=== PATIENT | male | born 1995 | race Caucasian/White ===

== ENCOUNTER 2023-04-24 14:37 | Emergency (ER) | payer SELFPAY ==
--- NOTE | ~2023-04-24 | US_ITS ---
EXAMINATION: US scrotum doppler DATE: 04/24/2023 16:35 INDICATION: Right testicular pain. TECHNIQUE: Grayscale and Doppler ultrasound images of the testes were obtained. COMPARISON: None. FINDINGS: The right testis measures 4.2 x 2.0 x 2.8 cm. The left testis measures 3.9 x 2.2 x 2.5 cm. There is normal vascular flow to both testes. The right epididymis is normal with normal vascular shyann w. The left epididymis is normal with normal vascular flow. There is no varicocele or hydrocele. IMPRESSION: 1. Normal testes. Reviewed, dictated and finalized at location A. ING AGENT IMPRESSION: 1. Normal testes.
[2023-04-24 15:01] VITALS: BP 140/95; PULSE 91; RESP 18; TEMP 36.6; O2SAT 100
--- NOTE | 2023-04-24 15:37 | ED.GENADULT ---
HPI - General Adult General Chief complaint: Urogenital-Male <Vicky Resendiz July, FLIGHT DIRECTOR - Last Filed: 04/24/23 15:42> Stated complaint: penis drainage? <Vicky Resendiz July, - Last Filed: 04/24/23 15:42> Time Seen by Provider: 04/24/23 18:55 <Vicky Resendiz July, FLIGHT DIRECTOR - Last Filed: 04/24/23 15:42> History of Present Illness HPI narrative: Focused HPI: [id number] Rm is a 28 y/o male who presents today with reports of having pain swelling to the Right testicle that started 3 days ago still having pain to the right side- Now also having some penile discharge that started 2 days ago also having some pain with urination Denies fever but states that he did have chills 3 days ago Denies concern for STI. GENERAL: Well-appearing, well-nourished, and in no acute distress. HEAD: Normocephalic, atraumatic. CHEST: Clear to auscultation. ?No respiratory distress. HEART: Regular rate and rhythm.? NEURO: ?Alert and oriented x3. Patient screened in triage and initial orders placed.? ?Additional care and disposition to be based upon?diagnostic testing and treatment. <Vicky Resendiz July, - Last Filed: 04/24/23 15:42> Related Data Allergies/adverse reactions: Allergies Allergy/AdvReac Type Severity Reaction Status Date / Time No Known Allergies Allergy Unknown Unverified 04/24/23 14:38 <Vicky Resendiz July,N - Last Filed: 04/24/23 15:42> Exam Narrative: APPEARANCE: No apparent distress. Head: atraumatic. EYES: EOMI, NOSE: Atraumatic NECK: Trachea midline RESPIRATORY: No increased rate of breathing CARDIOVASCULAR: RRR, ABDOMINAL: Non-distended MUSCULOSKELETAl: No obvious deformities NEURO: Alert. Moving 4/4 extremities SKIN:: Warm, dry. Normal color PSYCHIATRIC: Normal affect General exam: Normal oximetry O2 without gross lesions. Normal lie of the testicles. Some swelling along the posterior aspect of the right testicle. Cremasteric reflex intact. <Alessandro Concepcion MD - Last Filed: 04/24/23 22:19> Course Vital Signs Vital signs: Vital Signs Temperature 97.9 F 04/24/23 15:01 Pulse Rate 91 04/24/23 15:01 Respiratory Rate 18 04/24/23 15:01 Blood Pressure 140/95 H 04/24/23 15:01 Pulse Oximetry 100 04/24/23 15:01 Oxygen Delivery Room Air 04/24/23 15:01 Temperature 98.5 F 04/24/23 20:30 Pulse Rate 64 04/24/23 20:30 Respiratory Rate 16 04/24/23 20:30 Blood Pressure 128/93 H 04/24/23 20:30 Pulse Oximetry 99 04/24/23 20:30 Oxygen Delivery Room Air 04/24/23 15:01 <Vicky King, FLIGHT DIRECTOR - Last Filed: 04/24/23 15:42> Vital Signs Temperature 97.9 F 04/24/23 15:01 Pulse Rate 91 04/24/23 15:01 Respiratory Rate 18 04/24/23 15:01 Blood Pressure 140/95 H 04/24/23 15:01 Pulse Oximetry 100 04/24/23 15:01 Oxygen Delivery Room Air 04/24/23 15:01 Temperature 98.5 F 04/24/23 20:30 Pulse Rate 64 04/24/23 20:30 Respiratory Rate 16 04/24/23 20:30 Blood Pressure 128/93 H 04/24/23 20:30 Pulse Oximetry 99 04/24/23 20:30 Oxygen Delivery Room Air 04/24/23 15:01 <Alessandro Concepcion MD - Last Filed: 04/24/23 22:19> Medical Decision Making MDM Narrative Medical decision making narrative: -Course: 28-year-old male presenting with testicle pain penile discharge. Patient states he is sexually active with his only. Patient be treated for epididymitis/ orchitis. Also given 500 mg ceftriaxone IM. Patient discharged with urology follow-up. 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 times 10 days, Motrin, Tylenol <Alessandro Concepcion MD - Last Filed: 04/24/23 22:19> Vital Signs Vital Signs: Vital S
[2023-04-24 18:26] LABS: Appearance Urine Cloudy (Clear); Bacteria Urine None Seen /hpf; Bilirubin Urine Negative (Negative); Blood Urine 1+ (Negative); Color Urine Yellow (Yellow); Glucose Urine UA Negative (Negative); Ketones Urine 1+ mg/dL (Negative); Leukocyte Esterase Ur 2+ LEU/UL (Negative); Mucus Urine Present /lpf; Need Manual Microscopic Reviewed; Nitrate Urine Negative (Negative); Non Pathogenic Casts 0-2; Protein Urine Trace mg/dL (Negative); RBC Urine 0-2 /hpf (0-2); Squamous Epithelial Cell Urine None seen /hpf (Few); WBC Urine >100 /hpf; pH Urine 5.5 (5.0-9.0)
[2023-04-24 18:28] LABS: Add Urine Microscopic? YES
[2023-04-24 19:39] LABS: Chlamydia trachomatis NOT DETECTED (NOT DETECTE); Neisseria gonorrhoeae PCR NOT DETECTED (NOT DETECTE)
[2023-04-24] MEDS: cefTRIAXone 1 GM VIAL 0.5 GM IM (20:25)
[2023-04-24] MEDS: levoFLOXacin 500 MG TABLET PO (20:25)
[2023-04-24 20:30] VITALS: BP 128/93; PULSE 64; RESP 16; TEMP 36.9; O2SAT 99
== END 2023-04-24 21:06 | disposition home or self-care (01) ==
LOC: ANHED 20:49
PROVIDERS: Nurse Practitioner Family; Emergency Provider Emergency Medicine
DX: N45.2 Orchitis (principal); N45.1 Epididymitis
CPT/HCPCS: 76870; 81001; 87086; 87491; 87591; 93976; 96372; 99284; A9270; J0696